=== PATIENT | male | born 1975 | race Asian ===

== ENCOUNTER 2019-02-03 22:21 | Emergency (ER) | payer MEDICAID ==
[~2019-02-03] VITALS: Ht 162.6 cm; Wt 97.5 kg
[2019-02-03 22:31] VITALS: Ht 162.6 cm; Wt 97.5 kg
--- NOTE | 2019-02-03 23:26 | ERD ---
ER Documentation Chief Complaint Chief Complaint left eye redness/pain/clear discharge since this pm HPI Patient is a 43-year-old male presents to the ER for concerns of left eye redness, pain and clear drainage for the last 10 hours. Patient states symptoms started around 10 AM today. Patient does not recall getting anything in his eye. 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 He states that he has had trouble keeping his eye open secondary to itching and "poking pain." Patient does not wear cont act lens. Patient states that his vision is slightly blurry. Patient denies any complete vision loss. Patient denies any nausea, vomiting, headaches or LOC. Patient denies any falls or trauma. ROS All systems reviewed and are negative except as per history of present illness. Medications Home Meds Active Scripts Hydrocodone/Acetaminophen (Lincolnwood 5-325 Tablet) 1 Each Tablet, 1 TAB PO Q6H PRN for PAIN, #7 TAB Prov:LATASHA YOU PA-C 02/04/19 Ibuprofen* (Motrin*) 600 Mg Tab, 600 MG PO Q6, #30 TAB Prov:LATASHA YOU PA-C 02/04/19 Polymyxin B Sulfate-TMP* (Polymyxin B-TMP Eye Drops*) 10 Ml Drops, 1 DROP RIGHT EYE QID for 7 Days, EA Prov:LATASHA YOU PA-C 02/04/19 Allergies Allergies: Coded Allergies: No Known Drug Allergies (Verified Allergy, Unknown, 02/03/19) PMhx/Soc Medical and Surgical Hx: pt denies Medical Hx, pt denies Surgical Hx Hx Alcohol Use: No Hx Substance Use: No Hx Tobacco Use: No Smoking Status: Never smoker FmHx Family History: No diabetes Physical Exam Vitals Vital Signs Date Temp Pulse Resp B/P (MAP) Pulse Ox O2 O2 Flow FiO2 Time Delivery Rate 02/04/19 98.3 68 16 142/72 100 Room Air 01:02 (95) 02/03/19 97.7 79 18 159/72 100 22:31 (101) Physical Exam GENERAL: Well-developed, well-nourished male. Appears in no acute distress. Speaking in full sentences HEAD: Normocephalic, atraumatic. EYE: Visual acuity w/ Snellen eye chart: The visual acuity Normal eye alignment. Upper eyelid is mildly swollen. No proptosis. Pupils equal, round, and reactive to light. EOMs intact. No pain with EOMs. Moderate left conjunctival erythema and mild chemosis noted. Mild right conjunctival erythema noted. +Clear tearing. Anterior chamber clear. No hyphema or hypopion. L eye IOP: 15, 19 mmHg Wood's lamp exam: + Fluorescein uptake noted in the medial aspect of the left eye, consistent with corneal irritation. No ulcerations noted. Negative Debbie sign. NECK: Supple. No meningismus. Normal range of motion of the neck. LUNG: Clear to auscultation bilaterally. No rhonchi, wheezing, rales or coarse breath sounds. HEART: Regular rate and rhythm. No murmurs, rubs or gallops. EXTREMITIES: Equal pulses bilaterally. No peripheral clubbing, cyanosis or edema. No unilateral leg swelling. NEUROLOGIC: Alert and oriented. Moving all four extremities without any difficulty. Normal speech. Steady gait. SKIN: Normal color. Warm and dry. No rashes or lesions. Results 24 hrs Current Medications Medications Dose Sig/Beatris Start Time Status Last (Trade) Ordered Route PRN Stop Time Admin Dose Reason Admin Tetracaine 1 drop ONCE ONCE 02/03/19 DC HCl LEFT EYE 23:30 (Tetracaine 02/03/19 23:31 0.5% Steri-Unit Renee) Fluorescein 1 strip ONCE ONCE 02/03/19 DC Sodium LEFT EYE 23:30 (Icium-A-Xssw 02/03/19 23:31 p) Procedures/MDM MEDICAL DECISION MAKING: Patient is a 43-year-old male who presents ER for left eye redness, itching, clear tearing times 10 hours. Vital signs were reviewed. Patient was afebrile.Patient's vision was grossly intact. Under fluorescein stain, small amount of uptake was noted in the left medial aspect. Negative Debbie sign. Intraocular pressures were noted to be within normal limits. At this time, patient likely has corneal irritation. Patient will be treated with course of Polytrim eyedrops to prevent infection. Patient was given Lincolnwood and ibuprofen for his pain. Patient was advised to follow-up with an antenna specialist tomorrow. Referral information provided. Low suspicion for corneal ulcer, retained eye foreign body, glaucoma, pe riorbital cellulitis, orbital cellulitis, hordeolum, dacrocystitis or globe rupture. PRESCRIPTIONS: Polytrim eyedrops, Lincolnwood, ibuprofen The patient has been prescribed Lincolnwood during this encounter. The patient has been warned about the use of narcotics. The patient should not drive or operate heavy machinery while taking this medication. The patient was also warned about the addictive properties of narcotic medications. Narcan prescription was NOT provided given the following criteria: 1. More than 5 tablets of less than 10 tablets of Lincolnwood 5 mg were prescribed. 2. Concomitant opiate and benzodiazepine prescriptions were not provided. 3. There was no obvious evidence of prior history of opiate abuse or abuse. DISCHARGE: At this time, patient is stable for discharge and outpatient management. Supportive measures were discussed with patient including warm/cool compresses. Patient advised not to wear contact lenses or eye makeup. I have instructed the patient to follow-up with his/her primary care physician in 1-2 days. I have discussed with the patient the possibility of needing to see an antenna specialist for further workup if symptoms persist. I have instructed the patient to promptly return to the ER for any new or worsening symptoms including increased pain, fever, swelling, redness, warmth, nausea, vomiting, . The patient and/or family expressed understanding of and agreement with this plan. All questions were answered. Home care instructions were provided. Patients blood pressure was elevated (>120/80) but appears stable without evidence of hypertensive emergency, hypertensive urgency or end-organ failure. I had discussion with the patient about the risks of hypertension. I have advised the patient to follow up with his/her primary care physician for outpatient monitoring and treatment for hypertension in 2-3 days. I have instructed the patient to return to the ER for any new or worsening symptoms including chest pain, shortness of breath, headache, blurred vision, confusion, nausea, vomiting or LOC. Disclaimer: Inadvertent spelling and grammatical errors are likely due to EHR/dictation software use and do not reflect on the overall quality of patient care. Also, please note that the electronic time recorded on this note does not necessarily reflect the actual time of the patient encounter. Departure Diagnosis: Primary Impression: Conjunctivitis Conjunctivitis type: unspecified Laterality: left Qualified Codes: H10.9 - Unspecified conjunctivitis Additional Impressions: Chemosis Laterality: left Qualified Codes: H11.422 - Conjunctival edema, left eye Corneal irritation Laterality: left Qualified Codes: H18.892 - Other specified disorders of cornea, left eye Condition: Fair Patient Instructions: Conjunctivitis Caused by Irritation Referrals: PENDING SALE TO [facility] YOU HAVE RECEIVED A MEDICAL SCREENING EXAM AND THE RESULTS INDICATE THAT YOU DO NOT HAVE A CONDITION THAT REQUIRES URGENT TREATMENT IN THE EMERGENCY DEPARTMENT. FURTHER EVALUATION AND TREATMENT OF YOUR CONDITION CAN WAIT UNTIL YOU ARE SEEN IN YOUR DOCTORS OFFICE WITHIN THE NEXT 1-2 DAYS. IT IS YOUR RESPONSIBILITY TO MAKE AN APPOINTMENT FOR FOLOW-UP CARE. IF YOU HAVE A PRIMARY DOCTOR --you should call your primary doctor and schedule an appointment IF YOU DO NOT HAVE A PRIMARY DOCTOR YOU CAN CALL OUR PHYSICIAN REFERRAL HOTLINE AT IF YOU CAN NOT AFFORD TO SEE A PHYSICIAN YOU CAN CHOSE FROM THE FOLLOWING [facility] [address] [facility] [address] [facility] [address] [facility] [address] [facility] [address] [facility]. [facility] [address] [facility]. [facility] YOU HAVE RECEIVED A MEDICAL SCREENING EXAM AND THE RESULTS INDICATE THAT YOU DO NOT HAVE A CONDITION THAT REQUIRES URGENT TREATMENT IN THE EMERGENCY DEPARTMENT. FURTHER EVALUATION AND TREATMENT OF YOUR CONDITION CAN WAIT UNTIL YOU ARE SEEN IN YOUR DOCTORS OFFICE WITHIN THE NEXT 1-2 DAYS. IT IS YOUR RESPONSIBILITY TO MAKE AN APPOINTMENT FOR FOLOW-UP CARE. IF YOU HAVE A PRIMARY DOCTOR --you should call your primary doctor and schedule and appointment IF YOU DO NOT HAVE A PRIMARY DOCTOR YOU CAN CALL OUR PHYSICIAN REFERRAL HOTLINE AT . IF YOU CAN NOT AFFORD TO SEE A PHYSICIAN YOU CAN CHOSE FROM THE FOLLOWING [facility] INSTITUTIONS: [facility] [address] [place] [address] [facility] [address] [place] [address] [facility] [address] [place] [address] [facility] Hours: Mon - Fri 9:00 AM - 5:00 PM Additional Instructions: Follow-up with an eye doctor tomorrow. Call your primary care doctor TOMORROW for an appointment during the next 1-2 days.See the doctor sooner or return here if your condition worsens before your appointment time. LATASHA YOU PA-C Feb 03, 2019 23:26
[2019-02-03] MEDS ORDERED: TETRACAINE 0.5% 4 ML OPH LEFT EYE ONE (23:30)
[2019-02-03] MEDS ORDERED: FLUORESCEIN STRIP LEFT EYE ONE (23:30)
[2019-02-04] MEDS ORDERED: IBUP-1542 PO (00:56)
[2019-02-04] MEDS ORDERED: HYDR-4011 PO (00:56)
[2019-02-04] MEDS ORDERED: POLY10DR19 RIGHT EYE (00:56)
[2019-02-04 01:02] VITALS: BP 142/72; PULSE 68; RESP 16
== END 2019-02-04 01:03 | disposition home or self-care (01) ==
LOC: FTE 22:21
DX: H10.9 Unspecified conjunctivitis (principal); H11.422 Conjunctival edema, left eye; H18.892 Other specified disorders of cornea, left eye
CPT/HCPCS: Z7502; Z7610; 99283